=== PATIENT | female | born 1975 | race Caucasian/White ===

== ENCOUNTER 2023-09-24 13:19 | Emergency (ER) | payer OTHER, SELFPAY ==
[2023-09-24 13:26] VITALS: BP 128/80
[2023-09-24 15:07] VITALS: BMI 24.8
[2023-09-24] MEDS: NSS 1000 IV (15:24)
[2023-09-24] MEDS: TYLENOL 1000 MG PO (15:24)
[2023-09-24 15:26] LABS: % Basophils 0.8 % (0-2); % Eosinophils 0.4 % (0-6); % Immature Granulocytes 0.6 % (0-0.5); % Lymphocytes 19.4 % (20.5-51.1); % Monocytes 5.7 % (1.7-9.3); % Neutrophils 73.1 % (42.2-75.2); Absolute Basophils 0.1 10^3/uL (0-0.2); Absolute Eosinophils 0.1 10^3/uL (0-0.7); Absolute Immature Granulocytes 0.1 10^3/uL (0-0.05); Absolute Lymphocytes 2.3 10^3/uL (1.2-3.4); Absolute Monocytes 0.7 10^3/uL (0.1-0.6); Absolute Neutrophils 8.6 10^3/uL (1.4-6.5); Hematocrit 39.7 % (37.0-47.0); Hemoglobin 13.7 g/dL (12.0-16.0); Mean Corp Hgb Conc. 34.5 g/dL (33.0-37.0); Mean Corpuscular Hgb 29.2 pg (27.0-31.0); Mean Corpuscular Volume 84.6 fL (81.0-99.0); Mean Platelet Volume 10.4 fL (7.4-10.4); Nucleated Red Blood Cells % 0 %; Platelet Count 238 10^3/uL (130-400); Red Blood Cell Count 4.69 10^6/uL (4.20-5.40); Red Cell Dist. Width 12.5 % (11.5-14.5); White Blood Cell Count 11.8 10^3/uL (4.8-10.8)
[2023-09-24 15:35] LABS: APTT 28.4 Sec (23.4-35.0)
[2023-09-24 15:38] LABS: ALT (SGPT) 26 U/L (0-35); AST (SGOT) 23 U/L (14-36); Albumin 4.5 g/dl (3.5-5.0); Alkaline Phosphatase 117 U/L (38-126); Blood Urea Nitrogen 16 mg/dl (7-17); Carbon Dioxide 23 mmol/L (22-30); Chloride 106 mmol/L (98-107); Estimated Creatinine Clearance 80 ml/min; Glucose 95 mg/dl (70-99); Potassium 4.3 mmol/L (3.5-5.1); Sodium 137 mmol/L (135-145); Total Bilirubin 0.6 mg/dl (0.2-1.3); Total Protein 7.3 g/dl (6.3-8.2); eGFR > 60.00
[2023-09-24 15:48] LABS: Troponin I < 0.012 ng/ml
--- NOTE | 2023-09-24 15:55 | ED.GENMED ---
History of Present Illness
General
Chief Complaint: Fainting/Passed Out
Source: patient
Exam Limitations: none
Time Seen by Provider: 09/24/23 14:21
Nursing documentation reviewed up to this point in time: agreed with
Travel History
Have you had any contact with someone who has COVID-19?: No
Do you have any symptoms of coronavirus? Fever > 100 degrees, chills, cough, shortness of breath, sore throat, loss of taste or smell, muscle aches, or headache?: No
History of Present Illness
History of Present Illness:
48 y/o F with h/o smoking, premature cad in father
here with syncope
pt says that at 1 pm she was kinsey to reach for cereal and when she lifted her arm she felt a pain in her lower back, in the region of her previuos back pain from bulging disc. she suddenly had a severe pain and then woke up on the ground. she had
hit her head on the cabinet on the way down
woke up profusely sweating and had tingling in her fingrs that resolved
she has a mild headache
her back is still bothering her when she changes position
she had MRI in feb when it began
no radiatino down legs
pt ahs not had any palpitaitons, chest pain, fever, chills, vomiting, diarrhea, abodmial pain
she also incidentally noticed her great toes look purplish 1 mo ago
she has felt that they are a little cool
she didn't realyl know what it meant
they do not hurt
she has not had any known vascular disease
dad at 60 from mi but had first heart attack in early 50s
pt vapes nicotine, used to smoke cigarettes
no recent long travel > 6 hours long, no leg swelling, no pleuritic pain, no h/o malignancy, no sob.
Past History
Past History
ED Past Medical History: None
Social History
Personal:
Phy Exam
Physical Exam
Physical Exam:
GENERAL: Alert , in no apparent distress
head small hamatoma possibly posterior scalp, very small, slightly tender;
EYE: pupils equal and reactive
NECK: Supple
ENT: o/p clr, mmm.
CARDIAC: Regular rate and rhythm .normal dp pulses, no murmur
cap refill of the great toes is 2 seconds
slightly purplish
slightly cool feet b/l but not wearing socks
no pallor
LUNGS: Clear breath sounds bilaterally, no acute respiratory distress, no wheezes/rales/rhonchi
ABDOMEN: Soft, without focal tenderness, no r/g, no cvat, normal bowel sounds
NEUROLOGICAL: Alert and oriented, no focal neuro deficits, cn intact, strength intact, finger to nose normal, sensation intact
SKIN: Warm and dry, skin intact.
slight purplish skin to the great toes distal to nails
MUSCULOSKELETAL: No edema, well perfused. neg juancarlos's sign
full rom nontender feet
PSYCH: Normal and appropriate interaction.
Course
Orders/Labs/Results
Orders:
Orders
09/24/23 13:26
EKG [Electrocardiogram (*1)] Urgent
Reason for Study: Syncope
EKG- Treatment ONCE
09/24/23 15:01
CT Chest/abd/pelvis Angio W/wo Urgent
Comment:
Reason For Exam: back pain, syncope, toe cyanosis
09/24/23 15:02
Cardiac Monitoring- Treatment ONCE
09/24/23 15:04
0.9% Sodium Chloride 1000 ml [Nss] 1,000 ml IV BOLUS
09/24/23 15:05
CT Head W/o Iv Contrast Urgent
Comment:
Reason For Exam: syncope, hit head
Acetaminophen [Tylenol] 1,000 mg PO NOW STA
09/24/23 15:13
Complete Blood Count/With Diff Urgent
Comprehensive Metabolic Panel Urgent
HCG, Serum Qualitative Screen Urgent
Comment: ADD-ON
PTT Urgent
Prothrombin Time Urgent
TSH Reflex To Free T4 Urgent
Troponin I Urgent
09/24/23 15:56
Add On- LAB Urgent
Tests Added?: serum b-HCG, qualitative
09/24/23 16:47
EKG- Treatment ONCE
09/24/23 17:53
Troponin I Urgent
09/24/23 18:00
Electrocardiogram (*1) Urgent
Reason for Study: Syncope
Abnormal Lab Results
09/24/23
15:13
WBC 11.8 H 10^3/uL
(4.8-10.8)
Abs Immat Gran (auto) 0.1 H 10^3/uL
(0-0.05)
Absolute Neuts (auto) 8.6 H 10^3/uL
(1.4-6.5)
Absolute Monos (auto) 0.7 H 10^3/uL
(0.1-0.6)
Immature Gran % 0.6 H %
(0-0.5)
Lymphocytes % 19.4 L %
(20.5-51.1)
09/24/23 15:13
09/24/23 15:13
Vital Signs
Initial and Last Documented VS:
Initial Vital Signs
Temp Pulse Resp BP Pulse Ox
98.1 F 72 17 128/80 99
09/24/23 13:26 09/24/23 13:26 09/24/23 13:26 09/24/23 13:26 09/24/23 13:26
Last Documented Vital Signs
Temp Pulse Resp BP Pulse Ox
98.1 F 72 16 149/79 98
09/24/23 13:26 09/24/23 18:30 09/24/23 18:30 09/24/23 17:00 09/24/23 18:15
MDM/Problems Addressed
Differential Diagnosis Includes:
dissection, vasovagal syncope
MDM/Problems Addressed:
48 y/o F with no h/o syncope in the past
got sudden lower back pain which she has had before and then passedout
woke up clammy and sweaty and had tingling in her hands
those symptoms resolved
she has had w/u for the [facility] pain whic hhis non radiating and no cauda equina sypmtoms today
over the past month sh enoticed that both of her great toes have some purplish hue to the skin
no pain
no pallor
does smoke
no known vascular disease but dad was vasuclopath
pt's ekg normal sinus
sinus on monitor
orthos neg
she does have positional lower back pain
neg straigh tleg raise
likely pain intiiated vagal response
but d/w ed attending and we decided to ct to r/o dissection in the setting of severe back pain and skin changes to feet
dissection study neg
head ct neg
will reocmmend vaping cessation and f/u with vascular and cards
return precautions.
*Critical Care Note
Total Time (30-74mins, 75-104mins- exclusive of procedures): Not Applicable
ED Attending Note
-
Portions of this chart may have been created with voice recognition software.� Occasional wrong word or��sound alike� substitutions may have occurred due to the inherent limitations of voice recognition software.
Discharge Plan
Departure
Patient Disposition: Home (Routine Discharge)
Date of Disposition: 09/24/23
Time of Disposition: 18:48
Patient with high blood pressure during this ER visit?: No
Condition: Fair
Covid-19: Not Applicable
Discharge Problem:
Syncope, vasovagal
Instructions: Syncope (Fainting) (DC), BLOOD PRESSURE
Prescriptions:
New
methylprednisolone [Medrol ([place]ath)] 4 mg tablets,dose pack
See Rx Instructions .ROUTE .COMPLEX Qty: 21 0RF
Rx Instructions:
orally per package directions
No Action
hydrocodone-acetaminophen 1 TABLET tablet
1 tab PO Q4HPRN PRN (Reason: pain) Qty: 15 0RF
ondansetron HCl 4 MG tablet
4 mg PO Q8HPRN PRN (Reason: nausea) Qty: 10 0RF
Referrals:
Ivan Eubanks III, MD [Active] - Follow up in 5-7 days (vascular (for your toes))
Queenie Borrego MD [Active] - Follow up in 5-7 days (cardiology)
Savita Adamson MD [Family Provider] - Follow up in 2-3 days
Stand Alone Forms: Return to Work
Activity Restrictions/Additional Instructions:
It sounds like your syncope was caused by vagal episode because of your back pain. You can try a Medrol Dosepak for pain, Tylenol every 6 hours as needed for pain.
You had no signs of any aortic dissection or heart attack. You should follow-up with the early intervention school psychologist for further workup. He may want to put you on a Holter monitor report that you wear for 24 hours to ensure no dysrhythmias. Additionally the
discoloration of your toes does need follow-up, you can call your primary or call the vascular doctor for further workup. Return for any worsening symptoms like cold foot, pain, worsening discoloration etc.
Try to quit vaping.
For your head injury you could have a minor concussion. For this practice brain rest for 24 to 48 hours limiting your phone and TV and computer use. After that you can return to normal activities.
Interventions
Interventions:
*Risk Screen - Suicide Last Done: 09/24/23 15:09
*General Assessment Last Done: 09/24/23 15:07
*Neglect/Abuse Screening Last Done: 09/24/23 15:07
*Nursing Disposition Last Done: 09/24/23 19:11
ED- Cardiac Assessment Last Done: 09/24/23 15:09
ED- Neurological Assessment Last Done: 09/24/23 15:09
Discharge Date and Time
Discharge Date/Time: 09/24/23 19:11
Print Language: NAMIBIAN
[2023-09-24 16:08] VITALS: BP 154/84
[2023-09-24 16:09] LABS: TSH Reflex To Free T4 1.57 uIU/ml (0.47-4.68)
[2023-09-24 16:28] LABS: HCG, Serum Qualitative Screen Negative
[2023-09-24 17:00] VITALS: BP 149/79
[2023-09-24 18:24] LABS: Troponin I < 0.012 ng/ml
== END 2023-09-24 19:11 | disposition home or self-care (01) ==
LOC: EMR 13:19
PROVIDERS: Physician Assistant; EMERGENCY PHYSICIAN Emergency Medicine; FAMILY PHYSICIAN Family Medicine
DX: R55 Syncope and collapse (principal); S09.90XA Unspecified injury of head, initial encounter; M54.50 Low back pain, unspecified; R51.9 Headache, unspecified; R23.0 Cyanosis; W18.39XA Other fall on same level, initial encounter; F17.290 Nicotine dependence, other tobacco product, uncomplicated; Z82.49 Family history of ischemic heart disease and other diseases of the circulatory system
CPT/HCPCS: 99285; 96360; 70450; 71275; 74174; 80053; 84443; 84484; 84703; 85025; 85610; 85730; 93005; Q9967

== ENCOUNTER → 2023-10-24 11:05 | Outpatient (REF) | payer OTHER, SELFPAY | LOC: RAD 11:05 | PROVIDERS: ATTENDING PHYSICIAN Registered Nurse; FAMILY PHYSICIAN Family Medicine | DX: R23.0 Cyanosis (principal) | CPT/HCPCS: 93922; 93925 ==